=== PATIENT | female | born 1980 | race Two or more races ===

== ENCOUNTER 2022-12-23 14:07 | Emergency (ER) | payer MEDICAID ==
[~2022-12-23] VITALS: Ht 157.5 cm; Wt 70.0 kg
[2022-12-23] MEDS ORDERED: IBUPROFEN 600MG TABLET PO STA (14:27)
[2022-12-23] MEDS ORDERED: KETOROLAC 60MG/2ML VIAL IM ONE (16:15)
[2022-12-23] MEDS ORDERED: IBUP-2029 MT (16:22)
[2022-12-23] MEDS ORDERED: CYCL10TA21 MT (16:22)
[2022-12-23 16:52] VITALS: BP 120/82
== END 2022-12-23 16:53 | disposition home or self-care (01) ==
LOC: ER 14:34
DX: S09.90XA Unspecified injury of head, initial encounter (principal); V49.49XA Driver injured in collision with other motor vehicles in traffic accident, initial encounter; Y93.89 Activity, other specified; Y92.89 Other specified places as the place of occurrence of the external cause; Y99.8 Other external cause status; R07.89 Other chest pain
CPT/HCPCS: 70450; 71045; 72125; 93005; 96372; 99285; J1885